=== PATIENT | female | born 1985 ===

== ENCOUNTER 2019-11-17 14:24 | Outpatient (REF) | payer OTHER, SELFPAY ==
[2019-11-20 11:23] LABS: SARS-CoV-2 RNA Undetected (Undetected); SARS-CoV-2 Specimen Source Nasopharynx
== END 2019-11-17 14:44 ==
LOC: NCHCN 14:24
PROVIDERS: PCP Nurse Practitioner Family; Visit Provider Nurse Practitioner Family
DX: Z20.828 Contact with and (suspected) exposure to other viral communicable diseases (principal)
CPT/HCPCS: U0003

== ENCOUNTER 2020-09-16 13:58 | Outpatient (REF) | payer OTHER, SELFPAY ==
[2020-09-16 13:43] LABS: Anion Gap 11.6 mmol/L (3-11); BUN 9 mg/dL (7-18); CO2 25.4 mmol/L (21.0-32.0); CREATININE 0.7 mg/dL (0.55-1.02); Calcium 8.7 mg/dL (8.5-10.1); Calculated LDL 78 mg/dL (<100); Chloride 105 mmol/L (98-107); Cholesterol 151 mg/dL (<200); Glucose 90 mg/dL (74-106); HDL Cholesterol 58 mg/dL (40-60); Potassium 4.2 mmol/L (3.5-5.1); Sodium 142 mmol/L (136-145); Triglyceride 79 mg/dL (<150)
== END 2020-09-16 13:59 | disposition home or self-care (01) ==
LOC: NCHCN 13:58
PROVIDERS: PCP Nurse Practitioner Family; Visit Provider Nurse Practitioner Family
DX: Z00.00 Encounter for general adult medical examination without abnormal findings (principal)
CPT/HCPCS: 80048; 80061

== ENCOUNTER 2022-07-13 11:37 | Outpatient (REF) | payer OTHER, SELFPAY ==
--- NOTE | 2022-07-13 10:10 | PAPFT_PTH ---
PATIENT: [place] LOC: [facility]#:[id number] AGE/SX: 37/F ROOM: RE07/13/[address]: Pamela Farias : 1985 BED: DIS: 07/13/2022 SPEC #: [id number] RECD: 07/13/22 17:42 STATUS: MEME REQ #: [id number] AMAN: 07/13/22 10:[address]: Pamela Farias DEPT: [facility] Cytology RECD BY: Asmita Gasca ENTERED: 07/13/22 17:42 SP TYPE: PAPFT OTHR DR: Ashlee Anderson Tissues: 1 - CX/ENDOCX FOR PAP SMEARS Procedures: PAP THIN PREP/[facility] Screening HPV DNA PROBE Comments: [id number]
== END 2022-07-13 11:38 | disposition home or self-care (01) ==
LOC: NCHCN 11:37
PROVIDERS: PCP Nurse Practitioner Family; Visit Provider Family Medicine
DX: Z12.4 Encounter for screening for malignant neoplasm of cervix (principal)
CPT/HCPCS: 88142; 87624

== ENCOUNTER 2023-07-17 11:12 | Outpatient (REF) | payer OTHER, SELFPAY ==
[2023-07-17 14:46] LABS: HCT 34.3 % (36.0-46.0); HGB 10.7 g/dL (11.2-15.7); MCHC 31.2 % (32.0-36.0); MPV 11.1 fL (8.0-11.0); Platelet Count 337 10^3/uL (130-400); RDW 14.4 % (11.7-14.6); RDW-SD 38.3 fL; WBC 6.49 10^3/uL (4.4-10.8)
[2023-07-17 15:03] LABS: MCH 23.3 pg (27.0-33.0); MCV 75 fL (80-95)
[2023-07-17 15:09] LABS: Iron 28 ug/dL (50-170); Total Iron Binding Capacity 423 ug/dL (250-450); Transferrin Sat 7 % (15-50)
[2023-07-17 15:12] LABS: Anion Gap 6.9 mmol/L (3-11); BUN 13 mg/dL (7-18); CO2 26.1 mmol/L (21.0-32.0); CREATININE 0.8 mg/dL (0.55-1.02); Calcium 9.1 mg/dL (8.5-10.1); Chloride 104 mmol/L (98-107); Estimated GFR 96.06 (mL/min/1.73m2); Ferritin 5 ng/mL (8-252); Glucose 87 mg/dL (74-106); Potassium 3.9 mmol/L (3.5-5.1); Sodium 137 mmol/L (136-145); TSH (W/Ref FT4) 1.16 uIU/mL (0.36-3.74)
== END 2023-07-17 11:13 | disposition home or self-care (01) ==
LOC: NCHCN 11:12
PROVIDERS: PCP Nurse Practitioner Family; Visit Provider Family Medicine
DX: R53.83 Other fatigue (principal); R03.0 Elevated blood-pressure reading, without diagnosis of hypertension
CPT/HCPCS: 80048; 85027; 82728; 83540; 83550; 84443

== ENCOUNTER 2023-09-04 17:55 | Outpatient (REF) | payer OTHER, SELFPAY ==
[2023-09-04 14:39] LABS: HCT 39.1 % (36.0-46.0); HGB 12.9 g/dL (11.2-15.7); MCH 27.2 pg (27.0-33.0); MCV 82 fL (80-95); MPV 10.7 fL (8.0-11.0); Platelet Count 313 10^3/uL (130-400); RBC 4.75 10^6/uL (3.93-5.22); RDW 17.6 % (11.7-14.6); RDW-SD 52.4 fL; WBC 8.11 10^3/uL (4.4-10.8)
[2023-09-04 15:15] LABS: Iron 111 ug/dL (50-170); Total Iron Binding Capacity 309 ug/dL (250-450); Transferrin Sat 36 % (15-50)
[2023-09-04 15:17] LABS: Ferritin 26 ng/mL (8-252)
== END 2023-09-04 17:56 | disposition home or self-care (01) ==
LOC: NCHCN 17:55
PROVIDERS: PCP Nurse Practitioner Family; Visit Provider Family Medicine
DX: D64.9 Anemia, unspecified (principal)
CPT/HCPCS: 85027; 82728; 83540; 83550